=== PATIENT | male | born 1985 | race African-American/Black ===

== ENCOUNTER 2017-01-15 22:02 | Emergency (ER) | payer MEDICAID ==
[~2017-01-15] VITALS: Ht 167.6 cm; Wt 77.0 kg
[2017-01-15 22:03] VITALS: BP 134/97
[2017-01-15] MEDS ORDERED: ACETAMINOPHEN 325MG TABLET PO ONE (23:30)
[2017-01-16] MEDS ORDERED: LIDOCAINE HCL/EPINEPHRINE 1%-EPI 1:100,000 20 ML VIAL INFIL ONE (00:45)
[2017-01-16] MEDS ORDERED: LIDOCAINE HCL 1%/EPI 1:200,000 30 ML VIAL MC ONE (01:00)
[2017-01-16] MEDS ORDERED: LIDOCAINE HCL 1%/EPI 1:200,000 30 ML VIAL MC NR (01:00)
== END 2017-01-16 01:42 | disposition home or self-care (01) ==
LOC: ER 22:02
DX: S61.012A Laceration without foreign body of left thumb without damage to nail, initial encounter (principal); W26.8XXA Contact with other sharp object(s), not elsewhere classified, initial encounter; Y93.89 Activity, other specified; Y99.8 Other external cause status; Y92.410 Unspecified street and highway as the place of occurrence of the external cause
CPT/HCPCS: 12001; 73060; 99284; J3490; X7700; Z7610